=== PATIENT | male | born 1990 | race Caucasian/White ===

== ENCOUNTER 2020-12-26 19:41 | Emergency (ER) | payer MEDICARE, MEDICAID ==
[~2020-12-26] VITALS: Ht 180.3 cm; Wt 149.6 kg
[2020-12-26 19:45] VITALS: BP 135/96
== END 2020-12-26 20:28 | disposition home or self-care (01) ==
LOC: ER 19:41
DX: R53.83 Other fatigue (principal); Z00.00 Encounter for general adult medical examination without abnormal findings; Z87.891 Personal history of nicotine dependence; Z56.0 Unemployment, unspecified
CPT/HCPCS: 99281

== ENCOUNTER 2025-03-30 17:24 | Inpatient (IN) | payer MEDICAID, MEDICARE ==
[~2025-03-30] VITALS: Ht 175.3 cm; Wt 139.9 kg
[2025-03-30] MEDS ORDERED: ARIP15TA68 PO (18:06)
[2025-03-30 18:12] LABS: LEUKOCYTE ESTERASE ,URINE NEGATIVE (Neg); NITRITES, URINE NEGATIVE (Neg); OCCULT BLOOD,URINE NEGATIVE (Neg); UA COLLECTION TYPE NON-SPECIFIED
[2025-03-30 18:19] LABS: CREATININE 0.87 MG/DL (0.60-1.10); ETHANOL < 10 MG/DL (<10); TOTAL CARBON DIOXIDE 23.4 MMOL/L (24-32); eCRCL 127 ML/MIN; eGFR > 90 ML/MIN
[2025-03-30 18:19] LABS: MUCUS STRANDS MODERATE /LPF (Neg); SQUAMOUS EPITHELIAL CELL,UR FEW /LPF (FEW)
--- NOTE | 2025-03-30 18:19 | Physician Documentation ---
History of Present Illness ~ Chief Complaint: 5150 Stated Complaint: 5150 Time Seen by MD: 18:19 OK to notify your PCP?: Yes Primary Medical Doctor: Dr. Thompson Mode of Arrival: Police HPI 34-year-old male was brought to the emergency department as a 5150 hold due to concerns for being gravely disabled. On exam, the patient is able to state that he is at [facility] and appropriately state the date. However, he shows evidence of some paranoia and hallucinations. He reports that "when I need to get into my safe room people need to leave me alone. He further notes that he has been walking out in the heat today, feels tired, feels overall unwell. Off statements regarding how "narrow" the room is. Otherwise cooperative on exam. Medication Reconciliation Allergies: Coded Allergies: No Known Allergies (Unverified , 12/26/20) Scheduled Aripiprazole (Aripiprazole), 1 TAB PO DAILY, (Reported) Past Medical History Past Medical History: *PSYCH* Past Surgical History: no surgical history Smoking Status: Unknown if ever smoked Alcohol Use: None Drug Use: none Lives with: Mother Lives In: Home Occupation: unemployed Past Social History: Chews tobacco Review of Systems All Other Systems at this time: Reviewed and Negative ROS As stated above in the HPI, otherwise all systems are reviewed and negative. Physical Exam Vital Signs: RN Vital Signs have been reviewed: Yes, Temperature: 98.0, Source: Temporal, Heart Rate: 119, Respiratory Rate: 16, BP: 165/100, Pulse Oximetry: 97, Weight: 113.640 Oxygen Flow Rate: 0 Physical Exam General: Alert, no apparent distress. HEENT: PERRL, EOMI, no injection, dry mucous membranes. Neck: Full range of motion. Respiratory: Lungs clear, no respiratory distress. Chest: No accessory muscle use. Cardiovascular: Regular rate and rhythm, no murmurs. Gastrointestinal: Soft, nontender, nondistended. Bowels sounds present. Extremities: Normal range of motion, no deformity. Neurologic: Oriented x4. Psychiatric: Somewhat flat affect but with good eye contact. Skin: Normal color, warm and dry. No edema, no ecchymosis. Progress Progress Note 0538: Transfer orders for [facility]: At this time there is no evidence of an emergent medical condition that would preclude (admission/transfer) to a psychiatric unit via [facility] protocol for further psychiatric, as well as medical evaluation and treatment. At this time I have no reason to believe that transfer via [facility] protocol would have serious medical compromise in the patient's health. Results/Orders Reviewed/noted all lab results: Yes Results/Orders Vital Signs 03/30/25 03/30/25 03/30/25 03/30/25 17:26 17:42 19:18 19:37 Temp 98.0 98.0 Pulse 119 86 Resp 16 16 14 B/P (MAP) 165/100 116/59 (78) Pulse Ox 97 95 O2 Flow Rate 0 0 Laboratory Tests Test 03/30/25 17:32 03/30/25 17:48 03/30/25 18:04 03/30/25 19:21 SARS-CoV-2 Antigen (Rapid) Negative Sodium Level 137 Potassium Level 3.7 Chloride Level 101 Carbon Dioxide Level 23.4 L Anion Gap 13 Blood Urea Nitrogen 16 Creatinine 0.87 Estimated GFR/1.73 m2 > 90 BUN/Creatinine Ratio 18.4 Glucose Level 127 H Calcium Level 9.5 Albumin 4.0 Thyroid Stimulating Hormone (TSH) 0.87 Chemistry Comments Ethyl Alcohol Level < 10 Urine Specimen Description Non-specified Urine Color Yellow Urine Clarity Clear Urine pH 5.5 Urine Specific Alpha >=1.030 Urine Protein 30 H Urine Glucose (UA) Negative Urine Ketones Negative Urine Occult Blood Negative Urine Nitrite Negative Urine Bilirubin Small Urine Urobilinogen 0.2 Urine Leukocyte Esterase Negative Urine RBC 0-2 Urine WBC 0-4 Urine Squamous Epithelial Cells Few Urine Bacteria 1+ Urine Mucus Moderate Volume Urine Centrifuged 10 ml Urine Comment Urine Opiates Screen Negative Urine Methadone Screen Negative Urine Fentanyl Screen Negative Urine Barbiturates Screen Negative Urine Phencyclidine Screen Negative Urine Amphetamines Screen Negative Urine Benzodiazepines Screen Positive Urine Cocaine Screen Negative Urine Cannabinoids Screen Positive Drug Screen Comment White Blood Count 7.2 Red Blood Count 4.94 Hemoglobin 14.9 Hematocrit 43.2 Mean Corpuscular Volume 87.5 Mean Corpuscular Hemoglobin 30.1 Mean Corpuscular Hemoglobin Concent 34.4 Red Cell Distribution Width 14.3 Platelet Count 171 Mean Platelet Volume 8.9 Neutrophils (%) (Auto) 65.4 Lymphocytes (%) (Auto) 24.6 Monocytes (%) (Auto) 8.4 Eosinophils (%) (Auto) 0.6 Basophils (%) (Auto) 1.0 Neutrophils # (Auto) 4.7 Lymphocytes # (Auto) 1.8 Monocytes # (Auto) 0.6 Eosinophils # (Auto) 0.0 Basophils # (Auto) 0.1 CBC Comment Re-Evaluation Re-Evaluation : Re-Evaluation: Unchanged Progress Patient was cooperative overnight laboratory work was obtained patient is medically cleared for mental health treatment transport. Medical Decision Making Additional info obtained from: old records Differential Dx:Considerations: Include: Alcohol abuse, Anxiety, Bipolar disorder, Conversion disorder, Depression, Encephaloathy, Homicidal, Panic disorder, Personality disorder, Schizophrenia, Substance abuse, Suicidal, Other Departure Time of Disposition: 05:38 Disposition: 30 STILL A PATIENT Impression: Primary Impression: Grave disability Additional Impression: Mental health problem Condition: Stable Discharge Instructions: Suicidal Feelings: How to Help Yourself Referrals: NO PRIMARY CARE PROVIDER (PCP) Education Educated: Patient Educated regarding: diagnosis, need for follow up, other Signature Scribe Signature: no scribe Attestation: The note accurately reflects work and decisions made by me.Berny Hernandez NP 03/30/25 18:25 BERNY ELLISON NP Mar 30, 2025 18:19 AURA MENJIVAR MD Mar 31, 2025 05:38
[2025-03-30 18:28] LABS: URINE AMPHETAMINE SCREEN NEGATIVE (Neg); URINE BARBITUATE SCREEN NEGATIVE (Neg); URINE BENZODIAZEPINES SCREEN POSITIVE (Neg); URINE CANNABINOID SCREEN POSITIVE (Neg); URINE COCAINE SCREEN NEGATIVE (Neg); URINE METHADONE SCREEN NEGATIVE (Neg); URINE OPIATE SCREEN NEGATIVE (Neg); URINE PHENCYCLIDINE SCREEN NEGATIVE (Neg)
[2025-03-30] MEDS: normal saline 1000ml 1,000 ML IV ONE (19:07)
[2025-03-30 19:39] LABS: MEAN PLATELET VOLUME 8.9 FL (7.4-10.4); RED CELL DISTRIBUTION WIDTH 14.3 % (11.5-14.5)
[2025-03-31] MEDS ORDERED: DIAZ5TAB4 PO (12:19)
[2025-03-31] MEDS ORDERED: mag hydrox/Alum hydrox/simeth 30ml oral suspension PO PRN (15:50)
[2025-03-31] MEDS ORDERED: loperamide 2mg capsule PO PRN (15:50)
[2025-03-31] MEDS ORDERED: magnesium hydroxide 30ml (MOM) UD suspension PO PRN (15:50)
[2025-03-31 15:56] VITALS: BP 136/86; PULSE 80; RESP 16; TEMP 97.9; O2SAT 96
--- NOTE | 2025-03-31 17:26 | ELECTROCARDIOGRAPH REPORT ---
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 STANLEY Gutierrez Measurements Intervals [place] Rate: 72 P: 36 IA: 146 QRS: 46 QRSD: 100 T: 44 QT: 381 QTc: 417 Interpretive Statements Sinus rhythm Electronically Signed On 03-31-2025 17:57:[address] STANLEY Gutierrez Please click the below link to view image of tracing.
[2025-03-31 19:00] VITALS: RESP 18; O2SAT 98
[2025-03-31 20:00] VITALS: BP 152/77; PULSE 72; RESP 18; TEMP 97; O2SAT 96
[2025-03-31] MEDS: lithium carbonate 450mg CR tablet PO SCH (20:00)
[2025-03-31] MEDS: NICOTINE POLACRILEX 2 MG LOZENGE BC PRN (21:30)
[2025-04-01 07:00] VITALS: BP 139/92; PULSE 95; RESP 16; TEMP 97.5; O2SAT 98
[2025-04-01] MEDS: nicotine 21mg patch - 24 hr TD SCH (07:16)
--- NOTE | 2025-04-01 12:23 | HISTORY AND PHYSICAL ---
MH History & Physical - Blank History and Physical CHIEF COMPLIANT GRAVELY DISABLED DANGER TO SELF HISTORY OF PRESENT ILLNESS 34-year-old male was brought to the emergency department on a 5150 hold due to concerns for being gravely disabled. On exam the patient is able to state that he is at [facility] in appropriately state the date. However he shows evidence of some paranoia and hallucinations. He reports that when I need to get into my safe room people need to leave me alone. He further notes that he has been walking out in the heat today, feels tired, feels over well. Off statements regarding how narrow the room is. Otherwise cooperative on exam CHART REVIEW Pt is a 34 year old single white male who is on a 5150for GD who is unable to report a viable plan for food, clothing, and nursing home. He experiences disorganized thoughts, rambling, nonlinear speech associated with symptoms of psychosis. ASSESSMENT The patient was interviewed in observation room. The patient was actively sitting edge of bed. 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 Denies HI. The patient endorses adequate sleep and food intake. The patient is stable no acute distress noted. The patient presents as disorganized, making non-sensical statements, thought blocking, loose associations. and disengaged during session. Per staff report patient is medication compliant. Per staff report no abnormal behaviors. Per staff report patient has been engaging with activities in peers. Will continue daily assessment and adjusting treatment as needed. Closely monitor behavior and response to medication during hospitalization. Discussed treatment plan with patient. ASE/risks and benefits of chosen treatment. He verbalized understanding and consented to treatment. Collateral Received from patient's sister Deb. Deb endorses patient receives mental health services at [facility] and his Invega injection 156 mg is due on April 08. Deb also endorses that the patient's mom is no longer allow Tarik to stay at her home. The patient does not have a viable plan for food, clothing, and nursing home. The pateitn was very hard to follow, he was everywhere and he is a poor historian. REVIEW OF LABS WBC 7.2 RBC 4.94 HEMOGLOBIN 14.9 HEMATOCRIT 41.8 PLATELET COUNT 171 SODIUM 137 POTASSIUM 3.7 CHLORIDE 101 ANION GAP 13 BUN 16 CREATININE 0.87 CALCIUM 9.5 ALBUMIN 4.0 TSH 0.87 URINE TOX SCREEN POSITIVE CANNABIS URINALYSIS NEGATIVE MENTAL STATUS EXAM APPEARANCE: DISHELVED.OBESE TALL MALE. WEARING GREEN SCRUBS.FULL FACIAL HAIR.BROWN HAIR. SPEECH: CIRCUMSTANTIAL, TANGENTIAL, NON-SENSICAL,FLIGHT OF IDEAS, WORD SALAD EYE CONTACT: INTERMITTENT AFFECT: FULL MOOD: EUTHYMIC ORIENTATION IMPAIRMENT: NONE MEMORY IMPAIRMENT: NONE ATTENTION: DISTRACTED HALLUCINATIONS: AUDITORY, VISUAL SUICIDALITY: NONE DELUSIONS:NONE BEHAVIOR: COOPERATIVE JUDGMENT: POOR INSIGHT: POOR TREATMENT INVEGA SUSTENNA 156 MG Q 28 DAYS-DUE April-verified with Dr. Ortiz's office DIAZEPAM 5 MG P.O. DAILY THORAZINE 50 MG P.O. Q.6 PRN TRAZODONE 50 MG P.O. Q.6 Q.H.S. BENADRYL 50 MG P.O. Q.6 PRN HYDROXYZINE 50 MG P.O. Q.6 PRN Monitoring by Staff, Milieu, Group, and Individual counseling as needed -- According to the [place] Suicide Assessment the above named patient is on Q15 MINUTE CHECKS. 5250-GD-- The patient is unable to formulate a viable plan for food, clothing and nursing home. We are still titrating medications to an effective dose while maintaining a therapeutic environment to prevent decompensation and readmission. Total time spent 120 minutes on REVIEW OF Clinical notes [X ] RN notes [X] PCT documentation [X] SW notes Labs [ X] Medications [X] Care trends/care activity [X] Vitals [X] DISCUSSION WITH isotope technician [X] Staff SW Treatment Team [X] DISCHARGE UNSURE AT THIS TIME. DISCHARGE ONCE STABLE. Past Psychiatric History Past Psychiatric History PATIENT ENDORSES MULTIPLE PSYCHIATRIC MENTAL HEALTH HOSPITALIZATIONS STARTED IN 1989 DIAGNOSIS Past Medical History Past Medical History SEE MEDICAL H AND P Past Surgical History Past Surgical History DENIES ANY SURGICAL HISTORY Substance Abuse History Substance Abuse History MARIJUANA-DAILY TOBACCO-1 PPD ALCOHOL-OCCASIONALLY ILLICIT DRUG-DENIES Personal History Current Living Situation HOUSE IN [facility] Marital & Relationship History NEVER . ONE SON. 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
[2025-04-01] MEDS: lithium carbonate 450mg CR tablet PO SCH (17:34)
[2025-04-01] MEDS: OLANZapine 5mg rapidly disint. tablet PO ONE (17:35)
[2025-04-01 19:32] VITALS: BP 172/84; PULSE 90; RESP 18; TEMP 97.9; O2SAT 97
--- NOTE | 2025-04-01 20:21 | HISTORY AND PHYSICAL ---
History & Physical Providers to CC ~ History of Present Illness Reason for Admit\\Complaint: Gravely disabled History of Present Illness This is the hospitalist history and physical exam on patients hospitalized at [facility] psychiatric [facility]/ [facility] [place] [facility]. The patient is admitted for being gravely disabled in his on a 5150 he has bizarre answers when asked about his history including when asked about his medical history the patient informs me that he "prays with Mormans" I am able to get a accurate history from the patient when I asked him about drug use 8.2 his milk and made a comment about milk. Allergies: Coded Allergies: No Known Allergies (Unverified , 12/26/20) Home Medications Home Medications Active Past Medical History Past Medical History Unable to obtain Past Surgical History Surgical History Comment Unable to obtain Past Social History Social History Comment Unable to obtain ROS ROS Unknown the patient is psychotic Exam Vitals: Vital Signs Date Time Temp Pulse Resp B/P (MAP) Pulse Ox O2 Delivery O2 Flow Rate FiO2 04/01/25 19:32 97.9 90 18 172/84 (113) 97 Room Air 03/31/25 15:56 0.0 General: Gen. No acute distress, morbidly obese Lungs clear to ascultation bilaterally, no wheezes rales or rhonchi appreciated Heart normal sinus rhythm no murmurs rubs or clicks noted Abdomen soft nontender bowel sounds are normoactive Lower extremities no clubbing cyanosis, nor edema appreciated bilaterally Diagnostic Data Last Recorded Lab Results: 03/30/25 1921 03/30/25 1748 Problems: (1) Grave disability Status: Acute Additional Plan # gravely disabled On a 5150 followed by Psychiatry Unable to obtain an accurate past medical history and reviewed labs which are unremarkable. The hospitalist service will continue to follow the patient while hospitalized at [facility]. Date of Service: Apr 01, 2025 Billing Provider: DEEPAK VACA DO Common Visit Codes: [id number] INP/OBS CARE (LOW) DEEPAK VACA DO Apr 01, 2025 20:21
[2025-04-02 07:00] VITALS: RESP 16; O2SAT 100
[2025-04-02 08:00] VITALS: BP 152/86; PULSE 97; RESP 16; TEMP 96.8; O2SAT 100
--- NOTE | 2025-04-02 16:19 | PROGRESS NOTE ---
Progress Note Dictate Providers to CC ~ Central Line/PICC still needed: N\\A Antibiotic Ordered?: No MRSA Education MRSA Education Provided to pt: No Objective Vitals Vital Signs Date Time Temp Pulse Resp B/P (MAP) Pulse Ox O2 Delivery O2 Flow Rate FiO2 04/02/25 08:00 96.8 97 16 152/86 (108) 100 04/02/25 07:00 Room Air 0.0 Lab Results: 03/30/25 1921 03/30/25 1748 Problem\\Assessment\\Plan Problems/Diagnosis: (1) Schizophrenia (2) Grave disability Psychiatrist's Progress Note Date of Service: Apr 02, 2025 Notes CHART REVIEW Pt is a 34 year old single white male who is on a 5150for GD who is unable to report a viable plan for food, clothing, and alf. He experiences disorganized thoughts, rambling, nonlinear speech associated with symptoms of psychosis. ASSESSMENT The patient was interviewed in observation room. The patient was actively sitting in rec room participating in activities. The patient endorses "okay." When asked a question the patient would stare off and pause, seems to be thought blocking or finding words. The patient is all over the place making non-sensical statements. Denies SI. Denies HI. Denies AVH. But then states "The voices are positive." The patient endorses adequate sleep and food intake. The patient is stable no acute distress noted. The patient presents as a bit disorganized, and disengaged during session. Per staff report patient is medication compliant. Per staff report no abnormal behaviors. Per staff report patient has been engaging with activities in peers. Will continue daily assessment and adjusting treatment as needed. Closely monitor behavior and response to medication during hospitalization. Results Of any Diagn. Testing REVIEW OF LABS WBC 7.2 RBC 4.94 HEMOGLOBIN 14.9 HEMATOCRIT 41.8 PLATELET COUNT 171 SODIUM 137 POTASSIUM 3.7 CHLORIDE 101 ANION GAP 13 BUN 16 CREATININE 0.87 CALCIUM 9.5 ALBUMIN 4.0 TSH 0.87 URINE TOX SCREEN POSITIVE CANNABIS URINALYSIS NEGATIVE Appearnace: Other (DISHELVED.OBESE TALL MALE. WEARING GREEN SCRUBS.FULL FACIAL HAIR.BROWN HAIR.) Speech: Tangential, Other (CIRCUMSTANTIAL,FLIGHT OF IDEAS, WORD SALAD) Eye Contact: Avoidant Motor Activity: Normal Affect: Full Attention: Distracted Hallucinations: None Other: None Suicidality: None Homicidality: None Delusions: None Behavior: Bizarre Insight: Poor Judgment: Poor Treatment INVEGA SUSTENNA 156 MG Q 28 DAYS-DUE April-verified with Dr. Ortiz's office DIAZEPAM 5 MG P.O. DAILY THORAZINE 50 MG P.O. Q.6 PRN TRAZODONE 50 MG P.O. Q.6 Q.H.S. BENADRYL 50 MG P.O. Q.6 PRN HYDROXYZINE 50 MG P.O. Q.6 PRN Monitoring by Staff, Milieu, Group, and Individual counseling as needed -- According to the [place] Suicide Assessment the above named patient is on Q15 MINUTE CHECKS. 5250-GD-- The patient is unable to formulate a viable plan for food, clothing and alf. We are still titrating medications to an effective dose while maintaining a therapeutic environment to prevent decompensation and readmission. Total time spent 40 minutes on REVIEW OF Clinical notes [X ] RN notes [X] PCT documentation [X] SW notes Labs [ X] Medications [X] Care trends/care activity [X] Vitals [X] DISCUSSION WITH inspector cold working [X] Staff SW Treatment Team [X] Discharge UNSURE AT THIS TIME. DISCHARGE ONCE STABLE. CODING VISIT-PSYCHIATRY Date of Service: Apr 02, 2025 Billing Provider: FLAVIO CARDONA APRN Psych Common Visit Codes: [id number] INP/OBS CARE(Mod) FLAVIO CARDONA APRN Apr 02, 2025 16:19
[2025-04-02 19:34] VITALS: BP 137/84; PULSE 95; RESP 16; TEMP 97.4; O2SAT 96
[2025-04-03 07:00] VITALS: RESP 16; O2SAT 97
[2025-04-03 08:00] VITALS: BP 121/90; PULSE 89; RESP 16; TEMP 97.4; O2SAT 97
[2025-04-03 08:08] LABS: CHOL/HDL RATIO 5.8 (0.00-4.99); LDL CHOLESTEROL 131 MG/DL (50-100)
--- NOTE | 2025-04-03 16:09 | PROGRESS NOTE ---
Progress Note Dictate Providers to CC ~ Central Line/PICC still needed: N\\A Antibiotic Ordered?: No MRSA Education MRSA Education Provided to pt: No Objective Vitals Vital Signs Date Time Temp Pulse Resp B/P (MAP) Pulse Ox O2 Delivery O2 Flow Rate FiO2 04/03/25 08:00 97.4 89 16 121/90 (100) 97 04/03/25 07:00 Room Air 0.0 Lab Results: 03/30/25 1921 03/30/25 1748 Problem\\Assessment\\Plan Problems/Diagnosis: (1) Schizophrenia (2) Grave disability Psychiatrist's Progress Note Date of Service: Apr 03, 2025 Notes CHART REVIEW Pt is a 34 year old single white male who is on a 5150 for GD who is unable to report a viable plan for food, clothing, and fdc. He experiences disorganized thoughts, rambling, nonlinear speech associated with symptoms of psychosis. ASSESSMENT The patient was interviewed in observation room. The patient was actively standing in hallway talking on telephone. The patient endorses "pretty good." "Since we updated with medication the other night I have been feeling pretty good." "I am feeling pretty average in ready to do what I do what I can." "Mellowed temper not trying to put everyone weight on and not trying to put everyone's weight off." The patient endorses I am here for the future of exam's." "I slept good last night." Per staff report the patient slept 3hrs. The patient is still all over the place Denies SI. Denies HI. The patient endorses adequate sleep and food intake. The patient is stable no acute distress noted. The patient presents as a bit disorganized, and disengaged during session. Per staff report patient is medication compliant. Per staff report no abnormal behaviors. Per staff report patient has been engaging with activities in peers. Will continue daily assessment and adjusting treatment as needed. Closely monitor behavior and response to medication during hospitalization. Results Of any Diagn. Testing REVIEW OF LABS WBC 7.2 RBC 4.94 HEMOGLOBIN 14.9 HEMATOCRIT 41.8 PLATELET COUNT 171 SODIUM 137 POTASSIUM 3.7 CHLORIDE 101 ANION GAP 13 BUN 16 CREATININE 0.87 CALCIUM 9.5 ALBUMIN 4.0 TSH 0.87 URINE TOX SCREEN POSITIVE CANNABIS URINALYSIS NEGATIVE Appearnace: Other (DISHELVED.OBESE TALL MALE. WEARING GREEN SCRUBS.FULL FACIAL HAIR.BROWN HAIR.) Orientation Impairment: None Memory Impairment: None Attention: Normal Hallucinations: None Other: None Suicidality: None Homicidality: None Delusions: None Behavior: Cooperative Insight: Poor Judgment: Poor Treatment INVEGA SUSTENNA 156 MG Q 28 DAYS-DUE April DIAZEPAM 5 MG P.O. DAILY THORAZINE 50 MG P.O. Q.6 PRN TRAZODONE 50 MG P.O. Q.6 Q.H.S. BENADRYL 50 MG P.O. Q.6 PRN HYDROXYZINE 50 MG P.O. Q.6 PRN Monitoring by Staff, Milieu, Group, and Individual counseling as needed -- According to the [place] Suicide Assessment the above named patient is on Q15 MINUTE CHECKS. 5250-GD-- The patient is unable to formulate a viable plan for food, clothing and fdc. We are still titrating medications to an effective dose while maintaining a therapeutic environment to prevent decompensation and readmission. Total time spent 35 minutes on REVIEW OF Clinical notes [X ] RN notes [X] PCT documentation [X] SW notes Labs [ X] Medications [X] Care trends/care activity [X] Vitals [X] DISCUSSION WITH transit mixer driver [X] Staff SW Treatment Team [X] Discharge UNSURE AT THIS TIME. DISCHARGE ONCE STABLE. CODING VISIT-PSYCHIATRY Date of Service: Apr 03, 2025 Billing Provider: FLAVIO CARDONA APRN Psych Common Visit Codes: [id number] INP/OBS CARE(Mod) FLAVIO CARDONA APRN Apr 03, 2025 16:09
--- NOTE | 2025-04-03 17:00 | PROGRESS NOTE ---
Daily Progress Note Providers to CC ~ Antibiotic Timeout Antibiotic Ordered?: No Subjective Patient was seen in his room looked comfortable denied any concerns able to ambulate well. Objective Vital Signs Date Time Temp Pulse Resp B/P (MAP) Pulse Ox O2 Delivery O2 Flow Rate FiO2 04/03/25 08:00 97.4 89 16 121/90 (100) 97 04/03/25 07:00 Room Air 0.0 Result Diagram: 03/30/25 19203/30/25 1748 General-patient not in any acute distress, alert awake age-appropriate, looks comfortable, obese. HEENT-atraumatic normocephalic, neck supple without elevated JVD, No lymphadenopathy bilaterally. Eyes-no icterus or pallor seen in eyes Chest-clear to auscultation bilaterally, breathing nonlabored no tachypnea, no wheezing, no crepitation, no crackles.. Heart-S1-S2 normal, regular heart rate no murmur Abdomen bowel sounds positive on auscultation, soft nondistended nontender no guarding, no rigidity Skin no active skin rash Neurology-grossly intact, nonfocal alert awake oriented Extremity- no pedal edema able to move all 4 extremities Psychiatry - patient is not confused or agitated cooperated during physical examination Problem\Assessment\Plan Problems/Diagnosis: (1) Grave disability # gravely disabled On a 5150 followed by Psychiatry Unable to obtain an accurate past medical history and reviewed labs which are unremarkable. The hospitalist service will continue to follow the patient while hospitalized at [facility]. Date of Service: Apr 03, 2025 Billing Provider: BEATRIZ HANDLEY MD Common Visit Codes: [id number] INP/OBS CARE(LOW) BEATRIZ HANDLEY MD Apr 03, 2025 17:00
[2025-04-03 19:00] VITALS: RESP 16
[2025-04-03 20:00] VITALS: RESP 16
[2025-04-04 07:00] VITALS: BP 130/77; PULSE 67; RESP 16; TEMP 96.9; O2SAT 99
--- NOTE | 2025-04-04 10:05 | PROGRESS NOTE ---
Progress Note Dictate Providers to CC ~ Central Line/PICC still needed: N\\A Antibiotic Ordered?: No MRSA Education MRSA Education Provided to pt: No Objective Vitals Vital Signs Date Time Temp Pulse Resp B/P (MAP) Pulse Ox O2 Delivery O2 Flow Rate FiO2 04/04/25 07:00 16 99 Room Air 04/04/25 07:00 96.9 67 130/77 (94) 04/03/25 07:00 0.0 Problem\\Assessment\\Plan Problems/Diagnosis: (1) Schizophrenia (2) Grave disability Psychiatrist's Progress Note Date of Service: Apr 04, 2025 Notes CHART REVIEW Pt is a 34 year old single white male who is on a 5150 for GD who is unable to report a viable plan for food, clothing, and snf. He experiences disorganized thoughts, rambling, nonlinear speech associated with symptoms of psychosis. ASSESSMENT The patient was interviewed in observation room. The patient was actively sitting in rec room. The patient endorses "Fine." "We get talk to each other faster today." "It is a good sign that we get to talk to each other." "I think I woke up in this room before on a floor and there is probably some meaningful story as to why I will be kept in that room longer." "I see that the clouds in the air are rather statically inclined because of the firework demonstration in [facility]." "I started out the day watching a little bit a Goyo Potter." I been feeling good actually I have been able to talk to other people." "I been having trouble with my cell phone because I am not trying to break the tetherball line; I have to be cautious of that." "I told someone before the I have never taking the SAT before but I have." Denies SI. Denies HI. The patient endorses adequate sleep and food intake. The patient is stable no acute distress noted. The patient presents as a bit disorganized, tangential speech, and disengaged during session. Per staff report patient is medication non-compliant last night. This fiction writer was able to get patient to take his medication this morning. Patient was encouraged to take his medication as prescribed. Per staff report no abnormal behaviors. Will continue daily assessment and adjusting treatment as needed. Closely monitor behavior and response to medication during hospitalization. Results Of any Diagn. Testing REVIEW OF LABS WBC 7.2 RBC 4.94 HEMOGLOBIN 14.9 HEMATOCRIT 41.8 PLATELET COUNT 171 SODIUM 137 POTASSIUM 3.7 CHLORIDE 101 ANION GAP 13 BUN 16 CREATININE 0.87 CALCIUM 9.5 ALBUMIN 4.0 TSH 0.87 URINE TOX SCREEN POSITIVE CANNABIS URINALYSIS NEGATIVE Appearnace: Other (DISHELVED.OBESE TALL MALE. WEARING GREEN SCRUBS.FULL FACIAL HAIR.BROWN HAIR) Speech: Tangential, Other (FLIGHT OF IDEAS, WORD SALAD) Eye Contact: Intense Motor Activity: Normal Affect: Constricted Orientation Impairment: None Memory Impairment: None Attention: Normal Hallucinations: None Other: None Suicidality: None Homicidality: None Delusions: None Insight: Poor Judgment: Poor Treatment WE WILL GIVE INVEGA SUSTENNA INJECTION EARLY INPATIENT MAY NEED TO BE GIVEN INJECTION AT THREE WEEKS VERSUS FOUR WEEKS DUE TO WEARING OFF QUICKLY. INVEGA SUSTENNA 156 MG Q 28 DAYS-DUE April DIAZEPAM 5 MG P.O. DAILY THORAZINE 50 MG P.O. Q.6 PRN TRAZODONE 50 MG P.O. Q.6 Q.H.S. BENADRYL 50 MG P.O. Q.6 PRN HYDROXYZINE 50 MG P.O. Q.6 PRN Monitoring by Staff, Milieu, Group, and Individual counseling as needed -- According to the [place] Suicide Assessment the above named patient is on Q15 MINUTE CHECKS. 5250-GD-- The patient is unable to formulate a viable plan for food, clothing and snf. We are still titrating medications to an effective dose while maintaining a therapeutic environment to prevent decompensation and readmission. Total time spent 40 minutes on REVIEW OF Clinical notes [X ] RN notes [X] PCT documentation [X] SW notes Labs [ X] Medications [X] Care trends/care activity [X] Vitals [X] DISCUSSION WITH ui designer [X] Staff SW Treatment Team [X] Discharge UNSURE AT THIS TIME. DISCHARGE ONCE STABLE. CODING VISIT-PSYCHIATRY Date of Service: Apr 04, 2025 Billing Provider: FLAVIO CARDONA APRN Psych Common Visit Codes: [id number] INP/OBS CARE(Mod) FLAVIO CARDONA APRN Apr 04, 2025 10:05
[2025-04-04 19:00] VITALS: RESP 16; O2SAT 95
[2025-04-04 20:00] VITALS: BP 121/73; PULSE 89; RESP 16; TEMP 97.9; O2SAT 95
[2025-04-05 07:00] VITALS: BP 140/95; PULSE 88; RESP 16; TEMP 97.8; O2SAT 98
[2025-04-05] MEDS: paliperidone palmitate 156 mg/ml inj.**IM only IM ONE (11:08)
--- NOTE | 2025-04-05 12:12 | PROGRESS NOTE ---
Progress Note Dictate Providers to CC ~ Central Line/PICC still needed: N\\A Antibiotic Ordered?: No MRSA Education MRSA Education Provided to pt: No Objective Vitals Vital Signs Date Time Temp Pulse Resp B/P (MAP) Pulse Ox O2 Delivery O2 Flow Rate FiO2 04/05/25 07:00 97.8 88 16 140/95 (110) 98 Room Air 04/03/25 07:00 0.0 Problem\\Assessment\\Plan Problems/Diagnosis: (1) Schizophrenia (2) Grave disability Psychiatrist's Progress Note Date of Service: Apr 05, 2025 Notes CHART REVIEW Pt is a 34 year old single white male who is on a 5150 for GD who is unable to report a viable plan for food, clothing, and penitentiary. He experiences disorganized thoughts, rambling, nonlinear speech associated with symptoms of psychosis. ASSESSMENT The patient was interviewed in observation room. The patient was actively standing in hallway. The patient endorses "I am feeling pretty good, I just finished lunch." When asked about voices the patient endorses "certainly everyone has different hearing skills." "If anymore put any physical contact on me then yes I hear voices." "I got to see my uncle yesterday before the [employer] was glad about that." When asked the patient where what he go live once [place] They tried to get me to sign another 5051." "I allowed people to due a lot of clinical studies on me already." When asked if he sees things other don't see the patient endorse "In many ways yes." "My eyelashes are getting long." "I go to go to work when I get out of here." When asked where he worked the patient endorses "[employer] most of the time." Denies SI. Denies HI. The patient endorses adequate sleep and food intake. The patient is stable no acute distress noted. The patient presents as disorganized , tangential speech, and disengaged during session. Per staff report patient is medication compliant last night. Per staff report no abnormal behaviors. Will continue daily assessment and adjusting treatment as needed. Closely monitor behavior and response to medication during hospitalization. Results Of any Diagn. Testing REVIEW OF LABS WBC 7.2 RBC 4.94 HEMOGLOBIN 14.9 HEMATOCRIT 41.8 PLATELET COUNT 171 SODIUM 137 POTASSIUM 3.7 CHLORIDE 101 ANION GAP 13 BUN 16 CREATININE 0.87 CALCIUM 9.5 ALBUMIN 4.0 TSH 0.87 URINE TOX SCREEN POSITIVE CANNABIS URINALYSIS NEGATIVE Appearnace: Other (APPROPRIATE.OBESE TALL MALE. WEARING GREEN SCRUBS.FULL FACIAL HAIR.BROWN HAIR) Speech: Tangential, Other (CIRCUMSTANTIAL,FLIGHT OF IDEAS, WORD SALAD) Eye Contact: Normal Motor Activity: Normal Affect: Full Mood: Euthymic Orientation Impairment: None Memory Impairment: None Attention: Distracted Hallucinations: Auditory Other: None Suicidality: None Homicidality: None Delusions: None Behavior: Cooperative Insight: Poor Judgment: Poor Treatment Treatment WE WILL GIVE INVEGA SUSTENNA INJECTION EARLY INPATIENT MAY NEED TO BE GIVEN I NJECTION AT THREE WEEKS VERSUS FOUR WEEKS DUE TO WEARING OFF QUICKLY. INVEGA SUSTENNA 156 MG Q 28 DAYS-GIVEN APRIL 05 DIAZEPAM 5 MG P.O. DAILY THORAZINE 50 MG P.O. Q.6 PRN TRAZODONE 50 MG P.O. Q.6 Q.H.S. BENADRYL 50 MG P.O. Q.6 PRN HYDROXYZINE 50 MG P.O. Q.6 PRN Monitoring by Staff, Milieu, Group, and Individual counseling as needed -- According to the [place] Suicide Assessment the above named patient is on Q15 MINUTE CHECKS. 5250-GD-- The patient is unable to formulate a viable plan for food, clothing a nd penitentiary. We are still titrating medications to an effective dose while maintaining a therapeutic environment to prevent decompensation and readmission. Total time spent 35 minutes on REVIEW OF Clinical notes [X ] RN notes [X] PCT documentation [X] SW notes Labs [ X] Medications [X] Care trends/care activity [X] Vitals [X] DISCUSSION WITH rabbet operator [X] Staff SW Treatment Team [X] Discharge UNSURE AT THIS TIME. DISCHARGE ONCE STABLE. CODING VISIT-PSYCHIATRY Date of Service: Apr 05, 2025 Billing Provider: FLAVIO CARDONA APRN Psych Common Visit Codes: [id number] INP/OBS CARE(Mod) FLAVIO CARDONA APRN Apr 05, 2025 12:12
--- NOTE | 2025-04-05 18:59 | PROGRESS NOTE- Residence ---
Progress Note - Resident Providers to CC Resident Creating Document: RONALD APARICIO RES CC: ABBEY HAGER MD ~ Central Line/PICC still needed: N\A Antibiotic Timeout Antibiotic Ordered?: No Subjective No acute overnight events. No new complaints. Objective Vital Signs Date Time Temp Pulse Resp B/P (MAP) Pulse Ox O2 Delivery O2 Flow Rate FiO2 04/05/25 07:00 97.8 88 16 140/95 (110) 98 Room Air 04/03/25 07:00 0.0 General: Adult male, not in apparent distress Head: Normocephalic with an atraumatic Eyes: Pupils- 3mm, reacting to light, conjunctiva- anicteric Nose and throat: No polyps, septum- normal, no mucosal ulcers Neck: Supple, no lymphadenopathy, no carotid bruit Respiratory: No use of accessory muscles of respiration, Bilateral normal vesiscular breath sounds heard. No wheeze, rhochi or creps Cardiac: S1-S2 heard, rythm regular, no gallop/murmur Abdomen: non distended, no tenderness, no organomegaly, bowel sounds- heard Extremities: no clubbing, no pedal edema, no deformities, peripheral pulses- 2+ Skin: warm and dry, no rash, no purpura Neuro: No focal deficit, gross cranial nerve exam- normal Plan Plan 34-year-old male is admitted to [facility] for gravely disabled Management per Psychiatry Hyperlipidemia -likely secondary to antipsychotics -monitor lipid profile in six months Labs and vitals reviewed, service will continue to follow the patient Date of Service: Apr 05, 2025 Billing Provider: ABBEY HAGER MD, HARIVARSHA, RES Apr 05, 2025 18:59
[2025-04-05 19:00] VITALS: RESP 16; O2SAT 96
[2025-04-05 20:00] VITALS: BP 139/88; PULSE 111; RESP 16; TEMP 99; O2SAT 96
[2025-04-06 07:00] VITALS: BP 109/70; PULSE 82; RESP 14; TEMP 96.8; O2SAT 98
--- NOTE | 2025-04-06 11:43 | PROGRESS NOTE ---
Progress Note Dictate Providers to CC ~ Central Line/PICC still needed: N\\A Antibiotic Ordered?: No MRSA Education MRSA Education Provided to pt: No Objective Vitals Vital Signs Date Time Temp Pulse Resp B/P (MAP) Pulse Ox O2 Delivery O2 Flow Rate FiO2 04/06/25 07:00 96.8 82 14 109/70 (83) 98 Room Air 04/03/25 07:00 0.0 Problem\\Assessment\\Plan Problems/Diagnosis: (1) Schizophrenia (2) Grave disability Psychiatrist's Progress Note Date of Service: Apr 06, 2025 Notes CHART REVIEW Pt is a 34 year old single white male who is on a 5150 for GD who is unable to report a viable plan for food, clothing, and snf. He experiences disorganized thoughts, rambling, nonlinear speech associated with symptoms of psychosis. ASSESSMENT The patient was interviewed in observation room. The patient was actively standing in hallway engaging with his nurse. The patient endorses "I am pretty good had a pretty good breakfast today." "I am getting ready to follow up with my position in the lunch line." Just finished them very creative art work." "I made a few phone calls so I can continue with mom friendly quality in nature als o let someone know earlier that I had my own donna in place my own humble ability." "I hear the crowd cheering on and they are happy about getting new shoes." Denies SI. Denies HI. Denies AVH. "Once I got up and had breakfast I did not hear any static or any extra voices." "I can see rather well and I do not see anything unusual." The patient endorses adequate sleep and food intake. The patient is stable no acute distress noted. The patient presents as disorganized, tangential speech, word salad, and engaged during session. Per staff report patient is medication compliant. Per staff report no abnormal behaviors. The patient endorses he had a BM this morning and took a shower last. Will continue daily assessment and adjusting treatment as needed. Closely monitor behavior and response to medication during hospitalization. Results Of any Diagn. Testing REVIEW OF LABS WBC 7.2 RBC 4.94 HEMOGLOBIN 14.9 HEMATOCRIT 41.8 PLATELET COUNT 171 SODIUM 137 POTASSIUM 3.7 CHLORIDE 101 ANION GAP 13 BUN 16 CREATININE 0.87 CALCIUM 9.5 ALBUMIN 4.0 TSH 0.87 URINE TOX SCREEN POSITIVE CANNABIS URINALYSIS NEGATIVE Appearnace: Other (APPROPRIATE.OBESE TALL MALE. WEARING GREEN SCRUBS.FULL FACIAL HAIR.BROWN HAIR) Speech: Tangential, Other (FLIGHT OF IDEAS, WORD SALAD) Eye Contact: Other (INTERMITTENT) Motor Activity: Normal Affect: Full Mood: Euthymic Orientation Impairment: None Memory Impairment: None Attention: Normal Hallucinations: None Other: None Suicidality: None Homicidality: None Delusions: None Behavior: Cooperative Insight: Poor Judgment: Poor Treatment INVEGA SUSTENNA 156 MG Q 28 DAYS-GIVEN APRIL 05 DIAZEPAM 5 MG P.O. DAILY THORAZINE 50 MG P.O. Q.6 PRN TRAZODONE 50 MG P.O. Q.6 Q.H.S. BENADRYL 50 MG P.O. Q.6 PRN HYDROXYZINE 50 MG P.O. Q.6 PRN Monitoring by Staff, Milieu, Group, and Individual counseling as needed -- According to the [place] Suicide Assessment the above named patient is on Q15 MINUTE CHECKS. 5250-GD-- The patient is unable to formulate a viable plan for food, clothing and snf. We are still titrating medications to an effective dose while maintaining a therapeutic environment to prevent decompensation and readmission. Total time spent 40 minutes on REVIEW OF Clinical notes [X ] RN notes [X] PCT documentation [X] SW notes Labs [ X] Medications [X] Care trends/care activity [X] Vitals [X] DISCUSSION WITH automotive electrical fitter [X] Staff SW Treatment Team [X] Discharge UNSURE AT THIS TIME. DISCHARGE ONCE STABLE. CODING VISIT-PSYCHIATRY Date of Service: Apr 06, 2025 Billing Provider: FLAVIO CARDONA APRN Psych Common Visit Codes: [id number] INP/OBS CARE(Mod) FLAVIO CARDONA APRN Apr 06, 2025 11:43
[2025-04-06 19:00] VITALS: RESP 18; O2SAT 98
[2025-04-06 20:00] VITALS: BP 131/91; PULSE 104; RESP 18; TEMP 98.2; O2SAT 98
[2025-04-07 07:00] VITALS: BP 152/108; PULSE 98; RESP 17; TEMP 97.7; O2SAT 96
[2025-04-07] MEDS ORDERED: DIAZ-351 PO ×2 (14:24→14:25)
--- NOTE | 2025-04-07 14:38 | DISCHARGE SUMMARY ---
Discharge Summary Providers to CC ~ Discharge Summary Admission Diagnosis: SCHIZOPHRENIA. GRAVELY DISABLED Hospital Course DATE OF ADMISSION: DATE OF DISCHARGE: Discharge Diagnosis\\Comment: SCHIZOPHRENIA. GRAVELY DISABLED Operations\\Procedures: NONE Consultants: MEDICAL TEAM Complications: NONE Condition on DC: Stable 2 or more antipsychotic used: No 2/more antipsychotic addressed: No Does Patient smoke: No Smoking education given.: No New Medications: Diazepam (Diazepam) 5 Mg Tablet 5 MG PO DAILY for 3 Days, #3 TAB Discharge Summary: CHART REVIEW Pt is a 34 year old single white male who is on a 5150for GD who is unable to report a viable plan for food, clothing, and residential. He experiences disorganized thoughts, rambling, nonlinear speech associated with symptoms of psychosis. Patient actively seen and examined on day of discharge 04/07/2025, by myself, HAILEY Lopez. The patient is interviewed in observation room. The patient endorses "Good." Denies SI. Denies HI. Denies AVH. Tarik was able to formulate a safety plan which includes going to the emergency room if symptoms return or worsen. Call [phone] or [phone] for immediate assistance if necessary. During his hospital stay, Tarik receive multidisciplinary treatment he adhered to his medication regimen and has been pleasant and cooperative. He denies any suicidal ideation (SI), homicidal ideation (HI), auditory/visual hallucination (HI). Staff has reported no behavioral issues, and the patient has been sleeping well, adequate food intake, with no mood or behavioral changes noted. The patient was E-Scribed a 3 day supply of medication preferred pharmacy. Invega Sustenna 156 mg injection was given on April 05, 2025. MENTAL STATUS EXAM APPEARANCE: APPROPRIATELY. DRESSED IN STREET CLOTHING. SPEECH: CIRCUMSTANCE EYE CONTACT: NORMAL AFFECT: CONGRUENT WITH MOOD MOOD: "GOOD" ORIENTATION IMPAIRMENT: NONE MEMORY IMPAIRMENT: NONE ATTENTION: NORMAL HALLUCINATIONS: NONE SUICIDALITY: NONE HOMICIDALITY: NONE DELUSIONS: NONE BEHAVIOR: COOPERATIVE, PLEASANT JUDGMENT: FAIR, POOR INSIGHT: FAIR, POOR Continue Current Inpatient Psychotropic Regimen @ home Follow-Up with Psychiatric Provider Safety Plan Discussed DISCHARGE CONDITION: His readiness for discharge is supported by his stable mental status, adherence to treatment, and proactive approach to managing his mental health. Denies SI. Denies HI. Denies A/V/H. The patient has been informed to continue follow-up care to ensure ongoing support and monitoring. Patient discharged to home. *Problems/Diagnosis: (1) Schizophrenia (2) Grave disability Status: Acute Total Time Spent on D/C: > 30 Minutes Counseling Services Smoking & Tobacco Cessation: N/A CODING VISIT-PSYCHIATRY Date of Service: Apr 07, 2025 Billing Provider: FLAVIO CARDONA APRN Psych Common Visit Codes: [id number] DISCH DAY >30min FLAVIO CARDONA APRN Apr 07, 2025 14:29
[2025-04-08] MEDS ORDERED: paliperidone palmitate 156 mg/ml inj.**IM only IM ONE (15:00)
== END 2025-04-07 16:12 | disposition home or self-care (01) | DRG 750 ==
LOC: EEVIPCON 17:24 → ER 17:24 → ADULT MH 03-31 11:00 → UNDOADMIN 03-31 11:00 → ADULT MH 03-31 14:54
PROVIDERS: ADMIT Psychiatry & Neurology Psychiatry; ATTEND Psychiatry & Neurology Psychiatry
DX: F20.9 Schizophrenia, unspecified (principal); Z20.822 Contact with and (suspected) exposure to COVID-19; Z56.0 Unemployment, unspecified; Z87.891 Personal history of nicotine dependence; Z73.6 Limitation of activities due to disability
CPT/HCPCS: 36415; 80048; 80061; 80178; 80305; 80320; 81001; 83036; 84443; 85025; 87081; 87811; 93005; 96361; 96374; 99285; J2060; J7030